=== PATIENT | female | born 1995 | race Caucasian/White ===

== ENCOUNTER 2017-12-12 12:37 | Emergency (ER) | payer OTHER ==
[~2017-12-12] VITALS: Ht 162.6 cm; Wt 83.0 kg
[~2017-12-12 12:37] MED LIST: HYDR-3983 PO
[2017-12-12 12:45] VITALS: TEMP 36.7; Ht 162.6 cm; Wt 83.0 kg
[2017-12-12] MEDS ORDERED: CLINDAMYCIN HCL 150 MG CAP PO ONE (13:30)
[2017-12-12] MEDS ORDERED: CLC/300 PO (13:31)
--- NOTE | 2017-12-12 13:35 | EMERGENCY ROOM VISIT NOTE ---
ED Visit Note First contact with patient: 13:18 CHIEF COMPLAINT: Toothache HISTORY OF PRESENT ILLNESS: This 22-year-old female patient presented to the emergency department by private vehicle requested with a progressive toothache for past few months. The patient believes it is coming from broken left lower molar. The pain is now steady and severe and radiates to the face. The patient states that she saw her dentist "a while ago" and states that she was treated with an antibiotic, she thinks that it was amoxicillin. She states she was recently treated with Bactrim for MRSA infection, and she thought this might help her tooth infection as well. She has not followed up with her dentist regarding her worsening pain. She states that she has an appointment scheduled with an oral surgeon to have the tooth extracted on 12/24, but she states she could not take the pain anymore so she came to the emergency department for evaluation. They rate their pain as aching and throbbing and and the ibuprofen and Tylenol they have been taking has not relieved the pain , though she notes that she took some of her mother's Vicodin and states that this helped her pain. Denies facial swelling or fever. The patient denies any discharge from the mouth. She denies any difficulty swallowing or difficulty breathing. She reports some nausea with the pain, but denies vomiting and states she has been eating and drinking normally. She is not a diabetic. She is a current everyday smoker. REVIEW OF SYSTEMS: A 6 system review of systems was completed with positives and pertinent negatives listed in the HPI. ALLERGIES: No known allergies. MEDICATIONS: No current medications. PMH: Reviewed in chart, see problem list below. SOCIAL HISTORY: Lives at home. She is a current everyday smoker. PHYSICAL EXAM: Vitals are noted on the nurse's note and reviewed by myself. Vital signs stable, afebrile. GENERAL: Pleasant and cooperative, in no acute distress, non-diaphoretic, well-developed well-nourished. Mouth: The #20 tooth is very carious and noted to be broken off on the lateral aspect of the tooth, increased pain with percussion of the tooth. The gum is mildly swollen and tender around it, without any discharge or signs of an abscess. The remainder of the pharynx and tonsils are without erythema, edema, or exudate. The airway is patent. There is no facial swelling, cervical or submandibular lymphadenopathy. The patient appears uncomfortable and in pain. The patient has overall poor dental hygiene. EARS: External auditory canals clear, tympanic membranes pearly duffy without erythema or effusion bilaterally. ED COURSE: I examined the patient. The left lower bicuspid is carious and broken, with suspected exposed root, which is most likely causing the pain. Patient states that she did have x-rays by her dentist in the past showing an infection, she may have an unresolved infection of the tooth as well. The patient was offered Tylenol or ibuprofen for the pain, she declined these stating "they do not work for me." Topical benzocaine was applied to the tooth , and the broken tooth was then covered with dental wax, with some improvement in the patient's pain overall. Patient was provided with a small amount of dental wax for continued use, and was instructed to get some more dental wax [id number]. She was instructed to follow closely with her dentist until she is able to have her appointment with the oral surgeon. Given the concern for possible unresolved tooth infection, and previously treated with amoxicillin , the patient was placed on clindamycin, first dose given in the ED. Patient was educated regarding this medication. Patient was also given strict return precautions should her symptoms worsen, she verbalized understanding. Patient was discharged home in stable condition and ambulatory. Problem List Medical Problems: (1) Bronchitis Status: Chronic (2) Depression Status: Chronic (3) UTI (urinary tract infection) Status: Chronic Surgical Problems: (1) History of colonoscopy Status: Resolved Current/Historical Medications Scheduled Clindamycin HCl (Clindamycin HCl), 1 CAP PO QID Scheduled PRN Hydrocodone/Acetaminophen 7.5MG/325MG ([place] 7.5MG/325MG), 1 TAB PO Q6 PRN for Pain Allergies Coded Allergies: No Known Allergies (Unverified , UNKNOWN, 02/28/13) Vital Signs Date Time Temp Pulse Resp B/P (MAP) Pulse Ox O2 Delivery O2 Flow Rate FiO2 12/12/17 14:18 75 20 131/72 98 12/12/17 12:45 36.7 80 20 129/80 97 Room Air Medications Administered Medications (Trade) Dose Ordered Sig/Leny Route Start Time Stop Time Status Last Admin Dose Admin Clindamycin HCl (Cleocin Cap) 300 mg ONE ONCE PO 12/12/17 13:30 12/12/17 13:31 DC 12/12/17 13:38 300 MG Departure Information Impression Primary Impression: Pain, dental Dispostion Home / Self-Care Condition GOOD Prescriptions Clindamycin HCl (Clindamycin HCl) 300 Mg Cap 1 CAP PO QID for 10 Days, #39 CAP Prov: Soila Shoemaker [employer] 12/12/17 Referrals No Doctor, Assigned (PCP) Patient Instructions ED Tooth Pain, [facility] Additional Instructions You have been treated in the Emergency Department for Dental Pain. You were prescribed clindamycin to be taken 4 times a day for 10 days. This is an antibiotic. All antibiotics have the potential to cause diarrhea, eat yogurt every day or take a daily probiotic to help avoid this. Stop this medication and contact a medical provider if you were to develop any significant adverse side effects including: wheezing, shortness of breath, passing out, vomiting, or a diffuse rash. Always take antibiotics as directed and COMPLETE the ENTIRE course regardless of the improvement of your symptoms. For pain control, you can use the following [id number] medicines (if >12 yo): - Extra strength (500mg/tab) Tylenol (acetaminophen) 1-2 tabs every 6-8 hours as needed. Do not exceed 6 tablets in a 24 hour period. Avoid taking more than 3 grams (3000 mg) of Tylenol per day. This includes any other sources of acetaminophen you may take on a regular basis. - Regular strength (200 mg/tab) Advil (ibuprofen) 1-2 tabs every 4-6 hours as needed. Do not exceed a dose of 2400 mg per day. Refrain from smoking cigarettes or using chewing tobacco until you have been evaluated by your dentist. Keeping beverages lukewarm and consuming soft foods can decrease your pain. Applying cold or warm compresses over the affected area may offer some relief. You MUST seek evaluation of your dental pain by a dentist following your visit to the Emergency Department. The Emergency Department is not capable of treating dental issues long-term. You should call your dentist as soon as possible to make an appointment for evaluation of your dental pain. Return to the emergency department if you develop the following symptoms despite treatment course outlined above: fever, increased redness, swelling, or foul discharge from the mouth, difficulty swallowing or breathing, or any other concerns. Work Instructions Return To Work: 3 days
[2017-12-12 14:18] VITALS: BP 131/72; PULSE 75; O2SAT 98
== END 2017-12-12 14:19 | disposition home or self-care (01) ==
LOC: C.EDB 12:38 → C.EDD 14:19
DX: K08.89 Other specified disorders of teeth and supporting structures (principal); R11.0 Nausea; F32.9 Major depressive disorder, single episode, unspecified; F17.200 Nicotine dependence, unspecified, uncomplicated